=== PATIENT | male | born 1990 ===

== ENCOUNTER 2021-11-08 07:27 | Day surgery (SDC) | payer BC ==
[2021-11-08] MEDS ORDERED: Ringers Lactate 1,000 ML IV ONE (07:50)
[2021-11-08] MEDS ORDERED: MIDAZOLAM HCL 2 MG/2 ML INJ ONE (08:13)
[2021-11-08] MEDS ORDERED: propofoL 200 MG/20 ML VIAL IV ONE (08:13)
[2021-11-08] MEDS ORDERED: FENTANYL CITR 100 MCG/2 ML ONE (08:13)
[2021-11-08] MEDS ORDERED: LIDOCAINE 1% MPF 5 ML VIAL ONE (08:13)
[2021-11-08 08:18] LABS: Absolute Lymphocytes (CBC) 1.2 K/uL (0.7-4.9); Hematocrit 48.5 % (39.6-49.0); Lymphocytes % 17.1 % (15.3-44.8); MPV 9.2 fL (7.6-11.3); RBC Red Blood Cell Count 5.49 M/uL (4.33-5.43)
[2021-11-08 08:35] LABS: Potassium 3.8 mmol/L (3.5-5.1)
[2021-11-08] MEDS ORDERED: BUPIVACAINE 0.5% PF 10 ML VIAL ONE (08:35)
[2021-11-08] MEDS ORDERED: METHYLENE BLUE 0.5% 10 ML AMP ONE (08:35)
[2021-11-08] MEDS ORDERED: CEFAZOLIN/NS 1gm 1 GM/50 ML BAG ONE (08:52)
[2021-11-08] MEDS ORDERED: KETOROLAC 30 MG/ML INJ ONE (09:27)
[2021-11-08] MEDS ORDERED: dexAMETHasone 10 MG/ML VIAL ONE (09:27)
[2021-11-08] MEDS ORDERED: ROCURONIUM 50 MG/5 ML VIAL IV ONE (09:27)
[2021-11-08] MEDS ORDERED: ONDANSETRON 4 MG/2 ML VIAL ONE (09:37)
[2021-11-08] MEDS ORDERED: MORPHINE 10 MG/ML VIAL ONE (09:38)
[2021-11-08] MEDS ORDERED: GLYCOPYRROLATE 0.2 MG/ML SYR ONE ×2 (10:07)
[2021-11-08] MEDS ORDERED: NEOSTIGMINE 1 MG/ML -5 ML ONE (10:08)
[2021-11-08] MEDS ORDERED: DIPHENHYDRAMINE 50 MG/ML VIAL ONE (10:25)
[2021-11-08] MEDS ORDERED: SUCCINYLCHOLINE 20 MG/ML (10 ML) IV ONE (10:27)
--- NOTE | 2021-11-08 10:53 | P.BOP ---
Preoperative diagnosis: infected pilonidal cyst Postoperative diagnosis: infected pilonidal cyst with abscess Primary procedure: Wide excision of infected pilonidal cyst [id number] with abscess Estimated blood loss: <20cc Specimen: cyst and culture Findings: infected pilonidal cyst with abscess Anesthesia: General Complications: None Drain(s): Other (large kerlix roll packing) Transferred to: Recovery Room Condition: Good
[2021-11-08] MEDS ORDERED: HYDROCODONE/APAP 5/325 MG TAB ONE (11:23)
--- NOTE | 2021-11-08 11:26 | OP ---
Date of Procedure: 11/08/2021 Surgeon: Christian Geiger MD Preoperative Diagnosis: Infected pilonidal cyst. Postoperative Diagnosis: Infected pilonidal cyst with abscess. Procedure: Wide excision of infected pilonidal cyst, 15 x 10 x 5 cm with abscess drainage. Estimated Blood Loss: Less than 20 cc. Specimen: Cyst and culture. Findings: Infected pilonidal cyst with abscess. Packing: Large Kerlix roll, wet-to-dry. Indication: This is the case of a 31-year-old patient, who comes to us with a pilonidal cyst. He ortiz s been dealing with this for few years. The last few days, he has to go to a local ER. They did an I and D of that area, but did not work for him and he has a large amount of bulging over that region with erythema present, diagnosed with infected pilonidal cyst. We offered him not only drainage of a bscess, but a wide excision of a pilonidal abscess with benefits, alternatives, and risks including, but not limited to infection, bleeding, damage to adjacent structures, anesthesia complication, recur rence, AL and even . He also understands this may not relieve any symptoms. He might need more than one surgical intervention. He also understands the need for wound care long-term. He understo od, signed the consent. Procedure In Detail: The patient was brought to the operating room, placed in supine position. Anes thesia was done without complication. The patient was placed in prone position with proper protectio n. The back area was prepped and draped in usual sterile fashion. The patient has previous I and D' s, but they were previously closed, lateral scars from previous and this even in the past and they ar e all closed, but there is a bulging area. Once we probed 1 of the openings, he has in that region l arge amount of pus was coming out. We were able to put an Angiocath, put a blue dye in that region, and delineate the area of the cyst. We proceeded to make an incision where that blue area is and hap pened to be a very large incision, which is a 15 x 10 x 5 cm deep. The entire cyst was removed. Cul tures were sent. Hemostasis was obtained. Then, the area was packed with the entire Kerlix roll lar ge and wet-to-dry. The patient tolerated the procedure well. The patient was sent to recovery in st able condition. Sponge count and instrument counts correct. I noticed we have no allergies on him i n the office here. There is something listed in the computer as morphine allergies, although he thin ks it was 1 day he has some itchiness, but he claimed no. He is taking Vicodin before and Tylenol No .3 and even morphine today with no allergies whatsoever, so he would like to continue with his Vicodi n prescriptions and he has no allergies or any shortness of breath, or any rash or any itchiness with it. JARRELL/NORAH Voice ID: [id number] Report ID: [id number]
[2021-11-08 12:25] VITALS: BP 132/65; TEMP 98.5; O2SAT 96
== END 2021-11-08 11:44 | disposition home or self-care (01) ==
LOC: OR 07:27
PROVIDERS: ATTEND Surgery
PROC: 0JB90ZZ Excision of Buttock Subcutaneous Tissue and Fascia, Open Approach (ICD-10-PCS; principal; 2021-11-08 09:00)
DX: L05.91 Pilonidal cyst without abscess (principal); Z20.822 Contact with and (suspected) exposure to COVID-19
CPT/HCPCS: 87070; 85025; 80048; 36415; 87205; 88304; 87075; 11770; U0003; J2704; J0330; J1200; J2250; J3010; J1100; J2710; J0690; J7120; J2405